=== PATIENT | male | born 1950 | race Caucasian/White ===

== ENCOUNTER 2020-09-09 23:17 | Observation (INO) | payer MEDICARE ==
[~2020-09-09] VITALS: Ht 177.8 cm; Wt 72.4 kg
--- NOTE | 2020-09-09 23:48 | ED.ADGEN ---
General Adult EDM: Chief Complaint: SYNCOPE HPI: HPI: Patient is a 70-year-old male coming in via EMS for an episode of syncope in 1 lightheadedness. Patient states he noted in his usual state of health and went to the [facility] and did weights for an hour and elliptical for an hour which she typically does 3 times a week. Patient was going from the bathtub to the toilet to have diarrhea but passed out. I told him it will need a second episode of diarrhea. After which he had an episode of lightheadedness and then vomited. Per EMS while in the ambulance he was bradycardia down to the low 30s and his blood pressure dropped to a systolic of 66. He was given 1 mg of atropine with return of heart rate in the 60s. Patient states he is very active and takes amlodipine for hypertension and has not had that changed for years. Patient states she has not been drinking much water tonight and thinks this is something he ate. He denies any recent illness, fevers, shortness of breath, chest pain, headaches, changes in urination, or any lower extremity edema. He states that the diarrhea was not tarry or bloody. He states he was a good bit and his resting heart rate is usually in the low 50s. Review of Systems: Review of Systems: All other systems within normal limits except for as noted in the HPI Current Medications: Current Medications Medications (Trade) Dose Ordered Sig/Gabbi Start Time Stop Time Status Last Admin Dose Admin Acetaminophen (Tylenol) 650 mg PRN Q4HRS PRN 09/10/20 01:15 09/11/20 01:14 Fentanyl Citrate (Fentanyl 2ml Vial) 50 mcg PRN Q1HR PRN 09/10/20 01:15 09/11/20 01:14 Ondansetron HCl (Zofran) 4 mg PRN Q8HRS PRN 09/10/20 01:15 09/11/20 01:14 Sodium Chloride 1,000 ml @ 75 mls/hr [id number] 09/10/20 01:30 09/11/20 01:29 09/10/20 01:35 75 MLS/HR Allergies: Allergies: Allergies Coded Allergies Type Severity Reaction Last Updated Verified No Known Drug Allergies 09/09/20 No Physical Exam: PE: Constitutional: Well developed, well nourished, no acute distress, non-toxic appearance. [] HENT: Normocephalic, atraumatic, bilateral external ears normal, nose normal. [] Eyes: PERRLA, conjunctiva normal, no discharge. [] Neck: No rigidity, supple, no stridor. [] Cardiovascular: Regular rate and rhythm, brisk cap refill [] Lungs & Thorax: Non labored symmetric respirations, no tachypnea or respiratory distress [] Abdomen: Soft, nondistended, nontender, no pulsatile masses. Skin: Warm, dry, no erythema, no rash. [] Back: No tenderness, no CVA tenderness. [] Extremities: No deformities, range of motion grossly intact, no lower extremity edema [] Neurologic: Alert and oriented X 3, no focal deficits noted. [] Psychologic: Affect normal, judgement normal, mood normal. [] Current Patient Data: Labs: Laboratory Tests Test 09/09/20 23:23 White Blood Count 8.5 x10^3/uL (4.0-11.0) Red Blood Count 4.59 x10^6/uL (4.30-5.70) Hemoglobin 14.1 g/dL (13.0-17.5) Hematocrit 42.2 % (39.0-53.0) Mean Corpuscular Volume 92 fL (79-100) Mean Corpuscular Hemoglobin 31 pg (25-35) Mean Corpuscular Hemoglobin Concent 33 g/dL (31-37) Red Cell Distribution Width 13.7 % (11.5-14.5) Platelet Count 169 x10^3/uL (140-400) Neutrophils (%) (Auto) 88 % (31-73) H Lymphocytes (%) (Auto) 5 % (24-48) L Monocytes (%) (Auto) 5 % (0-9) Eosinophils (%) (Auto) 2 % (0-3) Basophils (%) (Auto) 0 % (0-3) Neutrophils # (Auto) 7.5 x10^3/uL (1.8-7.7) Lymphocytes # (Auto) 0.4 x10^3/uL (1.0-4.8) L Monocytes # (Auto) 0.4 x10^3/uL (0.0-1.1) Eosinophils # (Auto) 0.2 x10^3/uL (0.0-0.7) Basophils # (Auto) 0.0 x10^3/uL (0.0-0.2) Segmented Neutrophils % 78 % (35-66) H Band Neutrophils % 11 % (0-9) H Lymphocytes % 7 % (24-48) L Monocytes % 2 % (0-10) Eosinophils % 2 % (0-5) Platelet Estimate Adequate (ADEQUATE) Sodium Level 140 mmol/L (136-145) Potassium Level 3.3 mmol/L (3.5-5.1) L Chloride Level 105 mmol/L (98-107) Carbon Dioxide Level 27 mmol/L (21-32) Anion Gap 8 (6-14) Blood Urea Nitrogen 29 mg/dL (8-26) H Creatinine 1.3 mg/dL (0.7-1.3) Estimated GFR (Cockcroft-Gault) 54.3 BUN/Creatinine Ratio 22 (6-20) H Glucose Level 101 mg/dL (70-99) H Calcium Level 9.4 mg/dL (8.5-10.1) Magnesium Level 2.2 mg/dL (1.8-2.4) Total Bilirubin 0.7 mg/dL (0.2-1.0) Aspartate Amino Transferase (AST) 20 U/L (15-37) Alanine Aminotransferase (ALT) 25 U/L (16-63) Alkaline Phosphatase 62 U/L (46-116) Troponin I Quantitative < 0.017 ng/mL (0.000-0.055) YF-Djk-S-Type Natriuretic Peptide 242 pg/mL (0-124) H Total Protein 6.4 g/dL (6.4-8.2) Albumin 3.6 g/dL (3.4-5.0) Albumin/Globulin Ratio 1.3 (1.0-1.7) Thyroid Stimulating Hormone (TSH) 4.089 uIU/mL (0.358-3.74) H Laboratory Tests 09/09/20 23:23 Laboratory Tests 09/09/20 23:23 Vital Signs: Vital Signs Date Time Temp Pulse Resp B/P (MAP) Pulse Ox O2 Delivery O2 Flow Rate FiO2 09/09/20 23:17 97.9 77 18 114/72 (86) 97 Room Air 97.9 EKG: EKG: Sinus rhythm heart rate 65 bpm. Multiple PVCs, no ST elevation or depression, normal axis. [] Heart Score: HEART Score for Chest Pain: HEART Score for Chest Pain Response (Comments) Value History Slighlty/Non-Suspicious 0 ECG Nonspecific Repolarizatio 1 Age > 65 2 Risk Factors 1 or 2 Risk Factors 1 Troponin < Normal Limit 0 Total 4 Risk Factors: Risk Factors: DM, Current or recent (<one month) smoker, HTN, HLP, family history of CAD, obesity. Risk Scores: Score 0 - 3: 2.5% MACE over next 6 weeks - Discharge Home Score 4 - 6: 20.3% MACE over next 6 weeks - Admit for Clinical Observation Score 7 - 10: 72.7% MACE over next 6 weeks - Early Invasive Strategies Radiology/Procedures: Radiology/Procedures: INDICATION: Reason: bradycardia / Spl. Instructions: / History: COMPARISON: None. FINDINGS: Single view of chest obtained. Calcific atherosclerosis. Cardiac mediastinal silhouette near upper limits of normal in size. Vertically oriented line along the left lateral thorax likely skin fold. No definite focal consolidation or edema IMPRESSION: * No focal airspace consolidation or edema. [] Course & Med Decision Making: Course & Med Decision Making Pertinent Labs and Imaging studies reviewed. (See chart for details) [] Dragon Disclaimer: Dragon Disclaimer: This electronic medical record was generated, in whole or in part, using a voice recognition dictation system. Departure Departure Impression: Primary Impression: Syncope Additional Impression: Bradycardia Disposition: ADMITTED INPT THIS HOSP Admitting Physician: TREV Condition: STABLE Referrals: NO PCP (PCP) Problem Qualifiers INDY BARTH MD Sep 09, 2020 23:48
[2020-09-09 23:58] LABS: BASO % 0 % (0-3); EOS # 0.2 x10^3/uL (0.0-0.7); EOS % 2 % (0-3); HEMATOCRIT 42.2 % (39.0-53.0); HEMOGLOBIN 14.1 g/dL (13.0-17.5); LYMPH # 0.4 x10^3/uL (1.0-4.8); LYMPH % 5 % (24-48); MEAN CORPUSCULAR HEMOGLOBIN 31 pg (25-35); MEAN CORPUSCULAR HGB CONC 33 g/dL (31-37); MEAN CORPUSCULAR VOLUME 92 fL (79-100); MONO # 0.4 x10^3/uL (0.0-1.1); MONO % 5 % (0-9); NEUT # 7.5 x10^3/uL (1.8-7.7); NEUT % 88 % (31-73); PLATELET COUNT 169 x10^3/uL (140-400); RED BLOOD COUNT 4.59 x10^6/uL (4.30-5.70); RED CELL DISTRIBUTION WIDTH 13.7 % (11.5-14.5); WHITE BLOOD COUNT 8.5 x10^3/uL (4.0-11.0)
[2020-09-10 00:09] LABS: CALCIUM 9.4 mg/dL (8.5-10.1); CREATININE 1.3 mg/dL (0.7-1.3); GFR 54.3; POTASSIUM 3.3 mmol/L (3.5-5.1)
[2020-09-10 00:14] LABS: ALBUMIN 3.6 g/dL (3.4-5.0); ALBUMIN/GLOBULIN RATIO 1.3 (1.0-1.7); MAGNESIUM 2.2 mg/dL (1.8-2.4); TOTAL BILIRUBIN 0.7 mg/dL (0.2-1.0); TOTAL PROTEIN 6.4 g/dL (6.4-8.2)
[2020-09-10 00:20] LABS: % BANDS 11 % (0-9); % EOS 2 % (0-5); % LYMPHS 7 % (24-48); % MONOS 2 % (0-10); % SEGS 78 % (35-66)
[2020-09-10 00:21] LABS: PLT ESTIMATE ADEQUATE (ADEQUATE)
[2020-09-10] MEDS ORDERED: IV NORMAL SALINE 500ML BAG 500 ML IV ONE (00:30)
--- NOTE | 2020-09-10 00:41 | RAD ---
INDICATION: Reason: bradycardia / Spl. Instructions: / History: COMPARISON: None. FINDINGS: Single view of chest obtained. Calcific atherosclerosis. Cardiac mediastinal silhouette near upper limits of normal in size. Vertica lly oriented line along the left lateral thorax likely skin fold. No definite focal consolidation or edema IMPRESSION: * No focal airspace consolidation or edema. Electronically signed by: Tony Greene MD (09/10/2020 12:39 AM) [id number]
[2020-09-10] MEDS ORDERED: ONDANSETRON PF 4 MG/2 ML VIAL. IV PRN (01:15)
[2020-09-10] MEDS ORDERED: fentaNYL PF VIAL 100 MCG/2 ML VIAL IV PRN (01:15)
[2020-09-10] MEDS ORDERED: ACETAMINOPHEN 325 MG TABLET. PO PRN (01:15)
[2020-09-10 01:28] LABS: BILIRUBIN,URINE NEGATIVE (NEG); CLARITY,URINE CLEAR; COLOR,URINE YELLOW; NITRITE,URINE NEGATIVE (NEG); PROTEIN,URINE NEGATIVE (NEG-TRACE); UROBILINOGEN,URINE 0.2 mg/dL (0.2 mg/dL)
[2020-09-10] MEDS ORDERED: IV NORMAL SALINE 1000ML BAG 1,000 ML IV SCH (01:30)
--- NOTE | 2020-09-10 01:33 | EKG ---
[facility] [address] [place] [address] Test Date: 2020-09-09 Test Time: 23:27:46 Pat Name: JEFF SANCHEZ Department: Room: Gender: M Compliance Testing Analyst: : [id number] Requested By: INDY BARTH Order Number: [id number] Reading MD: Isac Martinez MD Measurements Intervals [place] Rate: 65 P: ND: QRS: 21 QRSD: 120 T: 79 QT: 520 QTc: 547 Interpretive Statements SR PVCS Electronically Signed On 09-10-2020 11:33:16 REAL ESTATE LISTING CONSULTANT by Isac Martinez MD
[2020-09-10 01:39] LABS: BACTERIA,URINE 0 /HPF (0-FEW); RBC,URINE RARE /HPF (0-2); WBC,URINE 0 /HPF (0-4)
[2020-09-10 07:00] VITALS: BP 140/77
--- NOTE | 2020-09-10 07:23 | PDOC1 ---
History and Physical Date of Admission Date of Admission DATE: 09/10/20 TIME: 07:07 Identification/Chief Complaint Chief Complaint Syncope Source Source: Patient History of Present Illness History of Present Illness Mr Carroll is a 70yo M w/ PMHx HTN who presents to ED via EMS for an episode of syncope. Patient states he noted in his usual state of health and went to the [facility] and did weights for an hour and elliptical for an hour which she typically does 3 times a week. He then went home for a bath and felt dizzy and the urge to defecate. He was going from the bathtub to the toilet to have diarrhea but became more lightheaded. notes he passed out for less than a minute. He also vomited after the episode and contacted EMS. He fell onto bath mat with his back against the bathtub did not strike his head. He has no pain complaints. Enroute noted bradycardic down to the low 30s and his blood pressure dropped to a systolic of 66. He was given 1 mg of atropine with return of heart rate in the 60s. Patient states he is very active and takes amlodipine for hypertension and simvastatin for hyperlipidemia both at night, and has not had that changed for years. Patient states he has not been drinking much water tonight and thinks this is something he ate. He had a salad for lunch. He had a fruit bowl and yogurt with banana and strawberries blueberries and granola to eggs sausage and an Somali muffin for breakfast. He denies any recent illness, fevers, shortness of breath, chest pain, headaches, changes in urination, or any lower extremity edema. He states that the diarrhea was not tarry or bloody. He states he has a fit bit and his resting heart rate is usually in the low 50s. On review of systems his only other complaint is that he has been drinking less water because he gets up to 5 times during the night to urinate he also has difficulty starting a stream and sometimes has urge incontinence during the day. He has never been on any medications for prostate but he did take saw palmetto [id number]. He recently stopped this He was enrolled in a research study at [facility] 2 years ago and had to negative treadmill cardiac stress test at that time. Chest radiograph with no abnormality EKG - Sinus rhythm heart rate 65 bpm. Multiple PVCs, no ST elevation or depression, normal axis. Labs WBC 8.5, Hb 14.1, platelets 169, NA 140, K3.3, BUN 29, CR 1.3 glucose 101, BNP 242, troponin x2 - TSH 4. UA with no abnormalities. Past Medical History Cardiovascular: HTN, Hyperlipidemia Past Surgical History Past Surgical History: No pertinent history Family History Family History: High Cholestrol, Hypertension Social History Smoke: No ALCOHOL: rare Drugs: None Current Problem List Problem List Problems Medical Problems: (1) Bradycardia Status: Acute (2) Syncope Status: Acute Current Medications Current Medications Current Medications Sodium Chloride 500 ml @ 500 mls/hr 1X ONCE IV Last administered on 09/10/20at 00:01; Start 09/10/20 at 00:30; Stop 09/10/20 at 01:29; Status DC Ondansetron HCl (Zofran) 4 mg PRN Q8HRS PRN IV NAUSEA/VOMITING 1ST CHOICE; Start 09/10/20 at 01:15; Stop 09/11/20 at 01:14 Fentanyl Citrate (Fentanyl 2ml Vial) 50 mcg PRN Q1HR PRN IV SEVERE PAIN 7-10; Start 09/10/20 at 01:15; Stop 09/11/20 at 01:14 Sodium Chloride 1,000 ml @ 75 mls/hr [id number] IV Last administered on 09/10/20at 01:35; Start 09/10/20 at 01:30; Stop 09/11/20 at 01:29 Acetaminophen (Tylenol) 650 mg PRN Q4HRS PRN PO FEVER > 100.3'F; Start 09/10/20 at 01:15; Stop 09/11/20 at 01:14 Allergies Allergies: Coded Allergies: No Known Drug Allergies (Unverified , 09/09/20) ROS General: No: Chills, Night Sweats, Fatigue, Malaise, Appetite, Other PSYCHOLOGICAL ROS: No: Anxiety, Behavioral Disorder, Concentration difficultie, Decreased libido, Depression, Disorientation, Hallucinations, Hostility, Irritablity, Memory difficulties, Mood Swings, Obsessive thoughts, Physical abuse, Sexual abuse, Sleep disturbances, Suicidal ideation, Other Eyes: No Blurry vision, No Decreased vision, No Double vision, No Dry eyes, No Excessive tearing, No Eye Pain, No Itchy Eyes, No Loss of vision, No Photophobia, No Scotomata, No Uses contacts, No Uses glasses, No Other HEENT: No: Heacaches, Visual Changes, Hearing change, Nasal congestion, Nasal discharge, Oral lesions, Sinus pain, Sore Throat, Epistaxis, Sneezing, Snoring, Tinnitus, Vertigo, Vocal changes, Other ALLERGY AND IMMUNOLOGY: No: Hives, Insect Bite Sensitivity, Itchy/Watery Eyes, Nasal Congestion, Post Nasal Drip, Seasonal Allergies, Other Hematological and Lymphatic: No: Bleeding Problems, Blood Clots, Blood Transfusions, Brusing, Night Sweats, Pallor, Swollen Lymph Nodes, Other ENDOCRINE: No: Breast Changes, Galactorrhea, Hair Pattern Changes, Hot Flashes, Malaise/lethargy, Mood Swings, Palpitations, Polydipsia/polyuria, Skin Changes, Temperature Intolerance, Unexpected Weight Changes, Other Breast: No New/Changing Breast Lumps, No Nipple changes, No Nipple discharge, No Other Respiratory: No: Cough, Hemoptysis, Orthopnea, Pleuritic Pain, Shortness of breath, SOB with excertion, Sputum Changes, Stridor, Tachypnea, Wheezing, Other Cardiovascular: No Chest Pain, No Palpitations, No Orthopnea, No Paroxysmal Noc. Dyspnea, No Edema, No Lt Headedness, No Other Gastrointestinal: Yes Nausea, Yes Vomiting, Yes Abdominal Pain, Yes Diarrhea; No Constipation, No Melena, No Hematochezia, No Other Genitourinary: YES Frequency, YES Incontinence, YES Retention, YES Urgency; No Dysuria, No Hematuria, No Discharge, No Pain, No Flank Pain, No Other, No , No , No , No , No , No , No Musculoskeletal: No Gait Disturbance, No Joint Pain, No Joint Stiffness, No Joint Swelling, No Muscle Pain, No Muscular Weakness, No Pain In:, No Swelling In:, No Other Neurological: No Behavorial Changes, No Bowel/Bladder ControlChng, No Confusion, No Dizziness, No Gait Disturbance, No Headaches, No Impaired Coord/balance, No Memory Loss, No Numbness/Tingling, No Seizures, No Speech Problems, No Tremors, No Visual Changes, No Weakness, No Other Skin: No Dry Skin, No Eczema, No Hair Changes, No Lumps, No Mole Changes, No Mottling, No Nail Changes, No Pruritus, No Rash, No Skin Lesion Changes, No Other, No Acne Physical Exam General: Alert, Oriented X3, Cooperative, No acute distress HEENT: Atraumatic, PERRLA, EOMI, Mucous membr. moist/pink Lungs: Clear to auscultation, Normal air movement Heart: S1S2, RRR, no thrills, no rubs, no gallops, no murmurs Abdomen: Normal bowel sounds, Soft, No tenderness, No hepatosplenomegaly, No masses Rectal Exam: not examined Extremities: No clubbing, No cyanosis, No edema, Normal pulses, No tenderness/swelling Skin: No rashes, No breakdown, No significant lesion Neuro: Normal gait, Normal speech, Strength at 5/5 X4 ext, Normal tone, Sensation intact, Cranial nerves 3-12 NL, Reflexes 2+ Psych/Mental Status: Mental status NL, Mood NL Vitals Vitals Vital Signs Date Time Temp Pulse Resp B/P (MAP) Pulse Ox O2 Delivery O2 Flow Rate FiO2 09/10/20 06:26 52 18 144/75 (98) 97 Room Air 09/09/20 23:17 97.9 97.9 Labs Labs Laboratory Tests Test 09/09/20 23:23 09/10/20 01:15 09/10/20 04:15 White Blood Count 8.5 x10^3/uL (4.0-11.0) Red Blood Count 4.59 x10^6/uL (4.30-5.70) Hemoglobin 14.1 g/dL (13.0-17.5) Hematocrit 42.2 % (39.0-53.0) Mean Corpuscular Volume 92 fL (79-100) Mean Corpuscular Hemoglobin 31 pg (25-35) Mean Corpuscular Hemoglobin Concent 33 g/dL (31-37) Red Cell Distribution Width 13.7 % (11.5-14.5) Platelet Count 169 x10^3/uL (140-400) Neutrophils (%) (Auto) 88 % (31-73) Lymphocytes (%) (Auto) 5 % (24-48) Monocytes (%) (Auto) 5 % (0-9) Eosinophils (%) (Auto) 2 % (0-3) Basophils (%) (Auto) 0 % (0-3) Neutrophils # (Auto) 7.5 x10^3/uL (1.8-7.7) Lymphocytes # (Auto) 0.4 x10^3/uL (1.0-4.8) Monocytes # (Auto) 0.4 x10^3/uL (0.0-1.1) Eosinophils # (Auto) 0.2 x10^3/uL (0.0-0.7) Basophils # (Auto) 0.0 x10^3/uL (0.0-0.2) Segmented Neutrophils % 78 % (35-66) Band Neutrophils % 11 % (0-9) Lymphocytes % 7 % (24-48) Monocytes % 2 % (0-10) Eosinophils % 2 % (0-5) Platelet Estimate Adequate (ADEQUATE) Sodium Level 140 mmol/L (136-145) Potassium Level 3.3 mmol/L (3.5-5.1) Chloride Level 105 mmol/L (98-107) Carbon Dioxide Level 27 mmol/L (21-32) Anion Gap 8 (6-14) Blood Urea Nitrogen 29 mg/dL (8-26) Creatinine 1.3 mg/dL (0.7-1.3) Estimated GFR (Cockcroft-Gault) 54.3 BUN/Creatinine Ratio 22 (6-20) Glucose Level 101 mg/dL (70-99) Calcium Level 9.4 mg/dL (8.5-10.1) Magnesium Level 2.2 mg/dL (1.8-2.4) Total Bilirubin 0.7 mg/dL (0.2-1.0) Aspartate Amino Transf (AST/SGOT) 20 U/L (15-37) Alanine Aminotransferase (ALT/SGPT) 25 U/L (16-63) Alkaline Phosphatase 62 U/L (46-116) Troponin I Quantitative < 0.017 ng/mL (0.000-0.055) < 0.017 ng/mL (0.000-0.055) EJ-Mhe-N-Type Natriuretic Peptide 242 pg/mL (0-124) Total Protein 6.4 g/dL (6.4-8.2) Albumin 3.6 g/dL (3.4-5.0) Albumin/Globulin Ratio 1.3 (1.0-1.7) Thyroid Stimulating Hormone (TSH) 4.089 uIU/mL (0.358-3.74) Urine Collection Type Unknown Urine Color Yellow Urine Clarity Clear Urine pH 6.0 (<5.0-8.0) Urine Specific [place] 1.025 (1.000-1.030) Urine Protein Negative mg/dL (NEG-TRACE) Urine Glucose (UA) Negative mg/dL (NEG) Urine Ketones (Stick) Trace mg/dL (NEG) Urine Blood Negative (NEG) Urine Nitrite Negative (NEG) Urine Bilirubin Negative (NEG) Urine Urobilinogen Dipstick 0.2 mg/dL (0.2 mg/dL) Urine Leukocyte Esterase Negative (NEG) Urine RBC Rare /HPF (0-2) Urine WBC 0 /HPF (0-4) Urine Squamous Epithelial Cells Few /LPF Urine Bacteria 0 /HPF (0-FEW) Urine Mucus Slight /LPF Laboratory Tests Test 09/09/20 23:23 09/10/20 01:15 09/10/20 04:15 White Blood Count 8.5 x10^3/uL (4.0-11.0) Red Blood Count 4.59 x10^6/uL (4.30-5.70) Hemoglobin 14.1 g/dL (13.0-17.5) Hematocrit 42.2 % (39.0-53.0) Mean Corpuscular Volume 92 fL (79-100) Mean Corpuscular Hemoglobin 31 pg (25-35) Mean Corpuscular Hemoglobin Concent 33 g/dL (31-37) Red Cell Distribution Width 13.7 % (11.5-14.5) Platelet Count 169 x10^3/uL (140-400) Neutrophils (%) (Auto) 88 % (31-73) Lymphocytes (%) (Auto) 5 % (24-48) Monocytes (%) (Auto) 5 % (0-9) Eosinophils (%) (Auto) 2 % (0-3) Basophils (%) (Auto) 0 % (0-3) Neutrophils # (Auto) 7.5 x10^3/uL (1.8-7.7) Lymphocytes # (Auto) 0.4 x10^3/uL (1.0-4.8) Monocytes # (Auto) 0.4 x10^3/uL (0.0-1.1) Eosinophils # (Auto) 0.2 x10^3/uL (0.0-0.7) Basophils # (Auto) 0.0 x10^3/uL (0.0-0.2) Segmented Neutrophils % 78 % (35-66) Band Neutrophils % 11 % (0-9) Lymphocytes % 7 % (24-48) Monocytes % 2 % (0-10) Eosinophils % 2 % (0-5) Platelet Estimate Adequate (ADEQUATE) Sodium Level 140 mmol/L (136-145) Potassium Level 3.3 mmol/L (3.5-5.1) Chloride Level 105 mmol/L (98-107) Carbon Dioxide Level 27 mmol/L (21-32) Anion Gap 8 (6-14) Blood Urea Nitrogen 29 mg/dL (8-26) Creatinine 1.3 mg/dL (0.7-1.3) Estimated GFR (Cockcroft-Gault) 54.3 BUN/Creatinine Ratio 22 (6-20) Glucose Level 101 mg/dL (70-99) Calcium Level 9.4 mg/dL (8.5-10.1) Magnesium Level 2.2 mg/dL (1.8-2.4) Total Bilirubin 0.7 mg/dL (0.2-1.0) Aspartate Amino Transf (AST/SGOT) 20 U/L (15-37) Alanine Aminotransferase (ALT/SGPT) 25 U/L (16-63) Alkaline Phosphatase 62 U/L (46-116) Troponin I Quantitative < 0.017 ng/mL (0.000-0.055) < 0.017 ng/mL (0.000-0.055) EY-Xis-S-Type Natriuretic Peptide 242 pg/mL (0-124) Total Protein 6.4 g/dL (6.4-8.2) Albumin 3.6 g/dL (3.4-5.0) Albumin/Globulin Ratio 1.3 (1.0-1.7) Thyroid Stimulating Hormone (TSH) 4.089 uIU/mL (0.358-3.74) Urine Collection Type Unknown Urine Color Yellow Urine Clarity Clear Urine pH 6.0 (<5.0-8.0) Urine Specific [place] 1.025 (1.000-1.030) Urine Protein Negative mg/dL (NEG-TRACE) Urine Glucose (UA) Negative mg/dL (NEG) Urine Ketones (Stick) Trace mg/dL (NEG) Urine Blood Negative (NEG) Urine Nitrite Negative (NEG) Urine Bilirubin Negative (NEG) Urine Urobilinogen Dipstick 0.2 mg/dL (0.2 mg/dL) Urine Leukocyte Esterase Negative (NEG) Urine RBC Rare /HPF (0-2) Urine WBC 0 /HPF (0-4) Urine Squamous Epithelial Cells Few /LPF Urine Bacteria 0 /HPF (0-FEW) Urine Mucus Slight /LPF Images Images Chest Radiograph: Calcific atherosclerosis. Cardiac mediastinal silhouette near upper limits of normal in size. Vertically oriented line along the left lateral thorax likely skin fold. No definite focal consolidation or edema IMPRESSION: * No focal airspace consolidation or edema. VTE Prophylaxis Ordered VTE Prophylaxis Devices: No VTE Pharmacological Prophylaxi: Yes Assessment/Plan Assessment/Plan A/P: Syncope -by history sounds to be vasovagal in nature not cardiogenic. Will hydrate KENDRA -likely vasomotor nephropathy from below Nausea vomiting diarrhea -self-limiting gastroenteritis possibly from food poisoning versus secondary to a vasovagal event. Hypokalemia -likely GI losses from vomiting and diarrhea. Will replace Hypertension -nighttime amlodipine. Hyperlipidemia -simvastatin Bradycardia -resting heart rate low due to physical fitness. Telemetry and EKG reviewed no abnormalities. Urinary retention -we will check IPSS score likely he needs Flomax or finasteride. FEN -regular diet PPX - ambulatory FULL CODE Dispo - observation for syncope. Will have echocardiogram and likely can d/c home Justifications for Admission Other Justification PIERCE CHATTERJEE MD Sep 10, 2020 07:23
[2020-09-10] MEDS ORDERED: POTASSIUM BICARB 20 MEQ EFFERVESCENT TABLET. PO ONE (07:30)
--- NOTE | 2020-09-10 07:46 | NUR ---
Patient arrived to room 262 via bed from ER at 0746. Patient is A&OX4. VSS. No complaints of pain at this time. The patient, JEFF SANCHEZ V, 70 y/o, M admitted by WAYLON MARX MD, was given written information regarding hospital policies, unit procedures and contact persons. Valuables were checked and noted. Will continue to monitor.
[2020-09-10 08:59] LABS: CALCIUM 7.1 mg/dL (8.5-10.1); CREATININE 0.6 mg/dL (0.7-1.3); GFR 132.4; POTASSIUM 3.2 mmol/L (3.5-5.1)
[2020-09-10] MEDS ORDERED: POTASSIUM CHLORIDE 20 MEQ TABLET.ER. PO ONE (09:30)
--- NOTE | 2020-09-10 09:32 | PDOC2 ---
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 Reports that he worked out yesterday afternoon with no problem. He works out about 3 times a week with both [employer] and [employer]. No covid outbreak recently at [facility]. He went home and did not drink enough fluids from what he could remember. He also takes norvasc a day. He ate salad which he bought from [employer] and 3 hours later he started having diarrhea. He was cramping significantly ending up having 3 diarrheal episodes and within that time period he had 2 episodes of passing out and with fall but no injury. There was no vertigo, nausea or vomiting but just associated with abdominal cramping. No chest pain, SOA or palpitations. This has not happened to him before. Denies any past CAD, arrhythmias and no hx of VTE. No fever chills, anosmia or ageusia and denies being exposed to anyone who had covid. PAST MEDICAL HISTORY Cardiovascular: HTN, Hyperlipidemia Pulmonary: No pertinent hx CENTRAL NERVOUS SYSTEM: Carpal Tunnel Syndrome GI: No pertinent hx Heme/Onc: No pertinent hx Hepatobiliary: No pertinent hx Psych: No pertinent hx Musculoskeletal: Osteoarthritis Rheumatologic: No pertinent hx Infectious disease: No pertinent hx ENT: No pertinent hx Renal/: No pertinent hx Endocrine: No pertinent hx Dermatology: No pertinent hx PAST SURGICAL HISTORY Past Surgical History: Cataract Removal, Other (CTS release) FAMILY HISTORY Family History: Hypertension SOCIAL HISTORY Smoke: No ALCOHOL: none Drugs: None Lives: with Family CURRENT MEDICATIONS CURRENT MEDICATIONS Current Medications Medications (Trade) Dose Ordered Sig/Gabbi Route PRN Reason Start Time Stop Time Status Last Admin Dose Admin Sodium Chloride 500 ml @ 500 mls/hr 1X ONCE IV 09/10/20 00:30 09/10/20 01:29 DC 09/10/20 00:01 Sodium Chloride 1,000 ml @ 75 mls/hr [id number] IV 09/10/20 01:30 09/11/20 01:29 09/10/20 01:35 ALLERGIES ALLERGIES: Coded Allergies: No Known Drug Allergies (Unverified , 09/09/20) ROS Review of System 14 point ROS evluated with pertinent positives noted per HPI PHYSICAL EXAM General: Alert, Oriented X3, Cooperative, No acute distress HEENT: Atraumatic, Mucous membr. moist/pink Lungs: Clear to auscultation, Normal air movement Heart: Regular rate (SR), Normal S1, Normal S2, No murmurs Abdomen: Soft, No tenderness Extremities: No cyanosis, No edema Skin: No breakdown, No significant lesion Neuro: Normal speech, Sensation intact Psych/Mental Status: Mental status NL, Mood NL MUSCULOSKELETAL: Osteoarthritic changes both hands VITALS/I&O VITALS/I&O: Vital Signs Date Time Temp Pulse Resp B/P (MAP) Pulse Ox O2 Delivery O2 Flow Rate FiO2 09/10/20 06:26 52 18 144/75 (98) 97 Room Air 09/09/20 23:17 97.9 97.9 I & O 09/09/20 09/09/20 09/10/20 14:59 22:59 06:59 Intake Total 500 ml Balance 500 ml LABS Lab: Laboratory Tests Test 09/09/20 23:23 09/10/20 01:15 09/10/20 04:15 09/10/20 07:13 White Blood Count 8.5 x10^3/uL (4.0-11.0) Red Blood Count 4.59 x10^6/uL (4.30-5.70) Hemoglobin 14.1 g/dL (13.0-17.5) Hematocrit 42.2 % (39.0-53.0) Mean Corpuscular Volume 92 fL (79-100) Mean Corpuscular Hemoglobin 31 pg (25-35) Mean Corpuscular Hemoglobin Concent 33 g/dL (31-37) Red Cell Distribution Width 13.7 % (11.5-14.5) Platelet Count 169 x10^3/uL (140-400) Neutrophils (%) (Auto) 88 % (31-73) H Lymphocytes (%) (Auto) 5 % (24-48) L Monocytes (%) (Auto) 5 % (0-9) Eosinophils (%) (Auto) 2 % (0-3) Basophils (%) (Auto) 0 % (0-3) Neutrophils # (Auto) 7.5 x10^3/uL (1.8-7.7) Lymphocytes # (Auto) 0.4 x10^3/uL (1.0-4.8) L Monocytes # (Auto) 0.4 x10^3/uL (0.0-1.1) Eosinophils # (Auto) 0.2 x10^3/uL (0.0-0.7) Basophils # (Auto) 0.0 x10^3/uL (0.0-0.2) Segmented Neutrophils % 78 % (35-66) H Band Neutrophils % 11 % (0-9) H Lymphocytes % 7 % (24-48) L Monocytes % 2 % (0-10) Eosinophils % 2 % (0-5) Platelet Estimate Adequate (ADEQUATE) Sodium Level 140 mmol/L (136-145) 144 mmol/L (136-145) Potassium Level 3.3 mmol/L (3.5-5.1) L 3.2 mmol/L (3.5-5.1) L Chloride Level 105 mmol/L (98-107) 111 mmol/L (98-107) H Carbon Dioxide Level 27 mmol/L (21-32) 23 mmol/L (21-32) Anion Gap 8 (6-14) 10 (6-14) Blood Urea Nitrogen 29 mg/dL (8-26) H 20 mg/dL (8-26) Creatinine 1.3 mg/dL (0.7-1.3) 0.6 mg/dL (0.7-1.3) L Estimated GFR (Cockcroft-Gault) 54.3 132.4 BUN/Creatinine Ratio 22 (6-20) H Glucose Level 101 mg/dL (70-99) H 84 mg/dL (70-99) Calcium Level 9.4 mg/dL (8.5-10.1) 7.1 mg/dL (8.5-10.1) #L Magnesium Level 2.2 mg/dL (1.8-2.4) Total Bilirubin 0.7 mg/dL (0.2-1.0) Aspartate Amino Transferase (AST) 20 U/L (15-37) Alanine Aminotransferase (ALT) 25 U/L (16-63) Alkaline Phosphatase 62 U/L (46-116) Troponin I Quantitative < 0.017 ng/mL (0.000-0.055) < 0.017 ng/mL (0.000-0.055) < 0.017 ng/mL (0.000-0.055) YH-Yik-V-Type Natriuretic Peptide 242 pg/mL (0-124) H Total Protein 6.4 g/dL (6.4-8.2) Albumin 3.6 g/dL (3.4-5.0) Albumin/Globulin Ratio 1.3 (1.0-1.7) Thyroid Stimulating Hormone (TSH) 4.089 uIU/mL (0.358-3.74) H Urine Collection Type Unknown Urine Color Yellow Urine Clarity Clear Urine pH 6.0 (<5.0-8.0) Urine Specific [place] 1.025 (1.000-1.030) Urine Protein Negative mg/dL (NEG-TRACE) Urine Glucose (UA) Negative mg/dL (NEG) Urine Ketones (Stick) Trace mg/dL (NEG) Urine Blood Negative (NEG) Urine Nitrite Negative (NEG) Urine Bilirubin Negative (NEG) Urine Urobilinogen Dipstick 0.2 mg/dL (0.2 mg/dL) Urine Leukocyte Esterase Negative (NEG) Urine RBC Rare /HPF (0-2) Urine WBC 0 /HPF (0-4) Urine Squamous Epithelial Cells Few /LPF Urine Bacteria 0 /HPF (0-FEW) Urine Mucus Slight /LPF Laboratory Tests 09/09/20 23:23 Laboratory Tests 09/09/20 23:23 09/10/20 07:13 ASSESSMENT/PLAN ASSESSMENT/PLAN 1. Syncope: suspect vasovagal, Negative CSH and orthostasis. No arrhythmias per tele 2. Diarrhea: possible food poisoning 3. Prerenal azotemia due to dehydration 4. PVCs with associated hypokalemia: maintaining SR 5. HLP Recommendations TTE MCOT discussed and would like to proceed follow up 10/14 9AM Anticipate home this PM BRADY OBANDO MD 09/11/20 0655: CARDIAC CONSULT ASSESSMENT/PLAN ASSESSMENT/PLAN Late entry for 09/10/20 Pt. seen and examined. Agree with above MASCARA MOLDER note. Supportive care. Thanks LACEY HEDRICK APRN Sep 10, 2020 09:32 BRADY OBANDO MD Sep 11, 2020 06:55
[2020-09-10 09:39] VITALS: BP 148/82
[2020-09-10 09:42] VITALS: BP 134/77
[2020-09-10 09:45] VITALS: BP 134/82
[2020-09-10 11:00] VITALS: BP 148/76
[2020-09-10 15:00] VITALS: BP 156/80
[2020-09-10] MEDS ORDERED: SIMV20TA18 PO (15:21)
[2020-09-10] MEDS ORDERED: AMLO-186 PO (15:21)
--- NOTE | 2020-09-10 15:25 | PDOC3 ---
Discharge Summary Visit Information Date of Admission: Sep 10, 2020 Date of Discharge: Sep 10, 2020 Admitting Diagnosis: Syncope Final Diagnosis Problems Medical Problems: (1) Bradycardia Status: Acute (2) Syncope Status: Acute Brief Hospital Course Allergies Allergies Coded Allergies Type Severity Reaction Last Updated Verified No Known Drug Allergies 09/09/20 No Vital Signs Vital Signs Date Time Temp Pulse Resp B/P (MAP) Pulse Ox O2 Delivery O2 Flow Rate FiO2 09/10/20 11:00 98.5 58 16 148/76 (100) 99 Room Air 98.5 Lab Results Laboratory Tests Test 09/09/20 23:23 09/10/20 01:15 09/10/20 04:15 09/10/20 07:13 White Blood Count 8.5 x10^3/uL (4.0-11.0) Red Blood Count 4.59 x10^6/uL (4.30-5.70) Hemoglobin 14.1 g/dL (13.0-17.5) Hematocrit 42.2 % (39.0-53.0) Mean Corpuscular Volume 92 fL (79-100) Mean Corpuscular Hemoglobin 31 pg (25-35) Mean Corpuscular Hemoglobin Concent 33 g/dL (31-37) Red Cell Distribution Width 13.7 % (11.5-14.5) Platelet Count 169 x10^3/uL (140-400) Neutrophils (%) (Auto) 88 % (31-73) Lymphocytes (%) (Auto) 5 % (24-48) Monocytes (%) (Auto) 5 % (0-9) Eosinophils (%) (Auto) 2 % (0-3) Basophils (%) (Auto) 0 % (0-3) Neutrophils # (Auto) 7.5 x10^3/uL (1.8-7.7) Lymphocytes # (Auto) 0.4 x10^3/uL (1.0-4.8) Monocytes # (Auto) 0.4 x10^3/uL (0.0-1.1) Eosinophils # (Auto) 0.2 x10^3/uL (0.0-0.7) Basophils # (Auto) 0.0 x10^3/uL (0.0-0.2) Segmented Neutrophils % 78 % (35-66) Band Neutrophils % 11 % (0-9) Lymphocytes % 7 % (24-48) Monocytes % 2 % (0-10) Eosinophils % 2 % (0-5) Platelet Estimate Adequate (ADEQUATE) Sodium Level 140 mmol/L (136-145) 144 mmol/L (136-145) Potassium Level 3.3 mmol/L (3.5-5.1) 3.2 mmol/L (3.5-5.1) Chloride Level 105 mmol/L (98-107) 111 mmol/L (98-107) Carbon Dioxide Level 27 mmol/L (21-32) 23 mmol/L (21-32) Anion Gap 8 (6-14) 10 (6-14) Blood Urea Nitrogen 29 mg/dL (8-26) 20 mg/dL (8-26) Creatinine 1.3 mg/dL (0.7-1.3) 0.6 mg/dL (0.7-1.3) Estimated GFR (Cockcroft-Gault) 54.3 132.4 BUN/Creatinine Ratio 22 (6-20) Glucose Level 101 mg/dL (70-99) 84 mg/dL (70-99) Calcium Level 9.4 mg/dL (8.5-10.1) 7.1 mg/dL (8.5-10.1) Magnesium Level 2.2 mg/dL (1.8-2.4) Total Bilirubin 0.7 mg/dL (0.2-1.0) Aspartate Amino Transf (AST/SGOT) 20 U/L (15-37) Alanine Aminotransferase (ALT/SGPT) 25 U/L (16-63) Alkaline Phosphatase 62 U/L (46-116) Troponin I Quantitative < 0.017 ng/mL (0.000-0.055) < 0.017 ng/mL (0.000-0.055) < 0.017 ng/mL (0.000-0.055) ZZ-Vjo-P-Type Natriuretic Peptide 242 pg/mL (0-124) Total Protein 6.4 g/dL (6.4-8.2) Albumin 3.6 g/dL (3.4-5.0) Albumin/Globulin Ratio 1.3 (1.0-1.7) Thyroid Stimulating Hormone (TSH) 4.089 uIU/mL (0.358-3.74) Urine Collection Type Unknown Urine Color Yellow Urine Clarity Clear Urine pH 6.0 (<5.0-8.0) Urine Specific [place] 1.025 (1.000-1.030) Urine Protein Negative mg/dL (NEG-TRACE) Urine Glucose (UA) Negative mg/dL (NEG) Urine Ketones (Stick) Trace mg/dL (NEG) Urine Blood Negative (NEG) Urine Nitrite Negative (NEG) Urine Bilirubin Negative (NEG) Urine Urobilinogen Dipstick 0.2 mg/dL (0.2 mg/dL) Urine Leukocyte Esterase Negative (NEG) Urine RBC Rare /HPF (0-2) Urine WBC 0 /HPF (0-4) Urine Squamous Epithelial Cells Few /LPF Urine Bacteria 0 /HPF (0-FEW) Urine Mucus Slight /LPF Laboratory Tests Test 09/09/20 23:23 09/10/20 01:15 09/10/20 04:15 09/10/20 07:13 White Blood Count 8.5 x10^3/uL (4.0-11.0) Red Blood Count 4.59 x10^6/uL (4.30-5.70) Hemoglobin 14.1 g/dL (13.0-17.5) Hematocrit 42.2 % (39.0-53.0) Mean Corpuscular Volume 92 fL (79-100) Mean Corpuscular Hemoglobin 31 pg (25-35) Mean Corpuscular Hemoglobin Concent 33 g/dL (31-37) Red Cell Distribution Width 13.7 % (11.5-14.5) Platelet Count 169 x10^3/uL (140-400) Neutrophils (%) (Auto) 88 % (31-73) Lymphocytes (%) (Auto) 5 % (24-48) Monocytes (%) (Auto) 5 % (0-9) Eosinophils (%) (Auto) 2 % (0-3) Basophils (%) (Auto) 0 % (0-3) Neutrophils # (Auto) 7.5 x10^3/uL (1.8-7.7) Lymphocytes # (Auto) 0.4 x10^3/uL (1.0-4.8) Monocytes # (Auto) 0.4 x10^3/uL (0.0-1.1) Eosinophils # (Auto) 0.2 x10^3/uL (0.0-0.7) Basophils # (Auto) 0.0 x10^3/uL (0.0-0.2) Segmented Neutrophils % 78 % (35-66) Band Neutrophils % 11 % (0-9) Lymphocytes % 7 % (24-48) Monocytes % 2 % (0-10) Eosinophils % 2 % (0-5) Platelet Estimate Adequate (ADEQUATE) Sodium Level 140 mmol/L (136-145) 144 mmol/L (136-145) Potassium Level 3.3 mmol/L (3.5-5.1) 3.2 mmol/L (3.5-5.1) Chloride Level 105 mmol/L (98-107) 111 mmol/L (98-107) Carbon Dioxide Level 27 mmol/L (21-32) 23 mmol/L (21-32) Anion Gap 8 (6-14) 10 (6-14) Blood Urea Nitrogen 29 mg/dL (8-26) 20 mg/dL (8-26) Creatinine 1.3 mg/dL (0.7-1.3) 0.6 mg/dL (0.7-1.3) Estimated GFR (Cockcroft-Gault) 54.3 132.4 BUN/Creatinine Ratio 22 (6-20) Glucose Level 101 mg/dL (70-99) 84 mg/dL (70-99) Calcium Level 9.4 mg/dL (8.5-10.1) 7.1 mg/dL (8.5-10.1) Magnesium Level 2.2 mg/dL (1.8-2.4) Total Bilirubin 0.7 mg/dL (0.2-1.0) Aspartate Amino Transf (AST/SGOT) 20 U/L (15-37) Alanine Aminotransferase (ALT/SGPT) 25 U/L (16-63) Alkaline Phosphatase 62 U/L (46-116) Troponin I Quantitative < 0.017 ng/mL (0.000-0.055) < 0.017 ng/mL (0.000-0.055) < 0.017 ng/mL (0.000-0.055) DE-Qpt-I-Type Natriuretic Peptide 242 pg/mL (0-124) Total Protein 6.4 g/dL (6.4-8.2) Albumin 3.6 g/dL (3.4-5.0) Albumin/Globulin Ratio 1.3 (1.0-1.7) Thyroid Stimulating Hormone (TSH) 4.089 uIU/mL (0.358-3.74) Urine Collection Type Unknown Urine Color Yellow Urine Clarity Clear Urine pH 6.0 (<5.0-8.0) Urine Specific [place] 1.025 (1.000-1.030) Urine Protein Negative mg/dL (NEG-TRACE) Urine Glucose (UA) Negative mg/dL (NEG) Urine Ketones (Stick) Trace mg/dL (NEG) Urine Blood Negative (NEG) Urine Nitrite Negative (NEG) Urine Bilirubin Negative (NEG) Urine Urobilinogen Dipstick 0.2 mg/dL (0.2 mg/dL) Urine Leukocyte Esterase Negative (NEG) Urine RBC Rare /HPF (0-2) Urine WBC 0 /HPF (0-4) Urine Squamous Epithelial Cells Few /LPF Urine Bacteria 0 /HPF (0-FEW) Urine Mucus Slight /LPF Brief Hospital Course Mr Carroll is a 70yo M w/ PMHx HTN who presents to ED via EMS for an episode of syncope. Patient states he noted in his usual state of health and went to [facility] and did weights for an hour and elliptical for an hour which she typically does 3 times a week. He then went home for a bath and felt dizzy and the urge to defecate. He was going from the bathtub to the toilet to have diarrhea but became more lightheaded. notes he passed out for less than a minute. He a lso vomited after the episode and contacted EMS. He fell onto bath mat with his back against the bathtub did not strike his head. He has no pain complaints. Enroute noted bradycardic down to the low 30s and his blood pressure dropped to a systolic of 66. He was given 1 mg of atropine with return of heart rate in the 60s. Patient states he is very active and takes amlodipine for hypertension and simvastatin for hyperlipidemia both at night, and has not had that changed for years. Patient states he has not been drinking much water tonight and thinks this is something he ate. He had a salad for lunch. He had a fruit bowl and yogurt with banana and strawberries blueberries and granola to eggs sausage and an [place] muffin for breakfast. He denies any recent illness, fevers, shortness of breath, chest pain, headaches, changes in urination, or any lower extremity edema. He states that the diarrhea was not tarry or bloody. He states he has a fit bit and his resting heart rate is usually in the low 50s. On review of systems his only other complaint is that he has been drinking less water because he gets up to 5 times during the night to urinate he also has difficulty starting a stream and sometimes has urge incontinence during the day. He has never been on any medications for prostate but he did take saw palmetto aldi-euo-[id number]. He recently stopped this He was enrolled in a research study at [facility] 2 years ago and had to negative treadmill cardiac stress test at that time. Chest radiograph with no abnormality EKG - Sinus rhythm heart rate 65 bpm. Multiple PVCs, no ST elevation or depression, normal axis. Labs WBC 8.5, Hb 14.1, platelets 169, NA 140, K3.3, BUN 29, CR 1.3 glucose 101, BNP 242, troponin x2 - TSH 4. UA with no abnormalities. Improved after IV fluids no further episodes no further bradycardia. Seen by cardiology telemetry reviewed. Cardiology recommends mobile cardiac outpatient telemetry monitoring and he will follow up with them outpatient for this 10/14/2020 at 0900. He underwent echocardiogram which has read pending at time of discharge but does not appear to have any valvular abnormalities or wall motion abnormalities on my interpretation. Problem list: Syncope -by history sounds to be vasovagal in nature not cardiogenic. Improved with hydration KENDRA -likely vasomotor nephropathy from below Nausea vomiting diarrhea -self-limiting gastroenteritis possibly from food poisoning versus secondary to a vasovagal event. Hypokalemia -likely GI losses from vomiting and diarrhea. Will replace Hypertension -nighttime amlodipine. Hyperlipidemia -simvastatin Bradycardia -resting heart rate low due to physical fitness. Telemetry and EKG reviewed no abnormalities. BPH - IPSS score 17 likely he needs Flomax + finasteride. Will initiate flomax Greater than 30 minutes spent on d/c home with self care Discharge Information Condition at Discharge: Improved Follow Up: Weeks (1) Disposition/Orders: D/C to Home Scheduled Amlodipine Besylate (Amlodipine Besylate) 5 Mg Tablet, 5 MG PO QHS for HTN for 90 Days, #90 Ref 3 Prescribed by: PIERCE CHATTERJEE MD on 09/10/20 1521 Simvastatin (Simvastatin) 20 Mg Tablet, 1 TAB PO QHS for HLD for 90 Days, #90 Ref 3 Prescribed by: PIERCE CHATTERJEE MD on 09/10/20 1521 Tamsulosin Hcl (Flomax) 0.4 Mg Cap.er.24h, 1 CAP PO QHS for BPH for 90 Days, #90 Ref 3 Prescribed by: PIERCE CHATTERJEE MD on 09/10/20 1537 Justicifation of Admission Dx: Justifications for Admission: Justification of Admission Dx: Yes PIERCE CHATTERJEE MD Sep 10, 2020 15:25
[2020-09-10] MEDS ORDERED: TAMS0.4C97 PO (15:37)
--- NOTE | 2020-09-10 16:43 | NUR ---
Discharge Note: JEFF SANCHEZ V 2 [facility] Discharge instructions and discharge home medications reviewed with Patient/patient's daughter over phone and a copy given. All questions have been answered and understanding verbalized. The following instructions and handouts were given: bradycardia info, syncope info, hypokalemia info, urinary retention info, med info, discharge instructions, follow ups. Discontinued lines and drains: Peripheral IV intact. Patient discharged to Home or Self Care with Spouse via Wheelchair at 1643. Also, spoke to patient's daughter over the phone about some discharge instructions.
--- NOTE | 2020-09-10 17:50 | CARD ---
MR#: [id number] Date of Study: 09/10/2020 Ordering Physician: LACEY HEDRICK, Referring Physician: LACEY HEDRICK, Tech: Bel [facility] APPROVED REPORT EXAM: Two-dimensional and M-mode echocardiogram with Doppler and color Doppler. Other Information Quality : Good INDICATION Syncope 2D DIMENSIONS RVDd3.0 (2.9-3.5cm)Left Atrium(2D)3.7 (1.6-4.0cm) IVSd0.9 (0.7-1.1cm)Aortic Root(2D)3.5 (2.0-3.7cm) LVDd5.5 (3.9-5.9cm)LVOT Diameter2.3 (1.8-2.4cm) PWd0.9 (0.7-1.1cm)LVDs3.1 (2.5-4.0cm) FS (%) 30.0 %SV108.1 ml LVEF(%)60.0 (>50%) Aortic Valve AoV Peak Nghia.141.6cm/sAoV VTI28.2cm AO Peak GR.8.0mmHgLVOT Peak Nghia.106.9cm/s AO Mean GR.4mmHgAVA (VMAX)3.14cm2 ANDREINA (VTI)3.79lz4EE P 1/2 [id number] Mitral Valve MV E Teanyorv32.6cm/sMV DECEL [id number] MV A Tbbyumbc05.6cm/sE/A Ratio0.6 Tricuspid Valve TR P. Nyoxfzqn564qn/sRAP [id number] TR Peak Gr.[id number] Pulmonary Vein S1 Qxjbsxqs73.4cm/sD2 Qwujtcjv52.5cm/s LEFT VENTRICLE The left ventricle is normal size. There is borderline concentric left ventricular hypertrophy. The l eft ventricular systolic function is normal and the ejection fraction is within normal range. The Eje ction Fraction is 55-60%. There is normal LV segmental wall motion. Transmitral Doppler flow pattern is Grade I-abnormal relaxation pattern. RIGHT VENTRICLE The right ventricle is normal size. The right ventricular systolic function is normal. ATRIA The left atrium size is normal. The right atrium size is normal. The interatrial septum is intact wit h no evidence for an atrial septal defect or patent foramen ovale as noted on 2-D or Doppler imaging. AORTIC VALVE The aortic valve is calcified but opens well. Doppler and Color Flow revealed mild eccentric aortic r egurgitation. There is no significant aortic valvular stenosis. MITRAL VALVE The mitral valve is calcified but opens well. Mitral annular calcification is mild. There is no evide nce of mitral valve prolapse. There is no mitral valve stenosis. Doppler and Color Flow revealed trac e mitral valve regurgitation. TRICUSPID VALVE The tricuspid valve is normal in structure and function. Doppler and Color Flow revealed trace to mil d tricuspid regurgitation. The PA pressure was estimated at 32 mmHg. There is no tricuspid valve sten osis. PULMONIC VALVE The pulmonic valve is not well visualized. Doppler and Color Flow revealed no pulmonic valvular regur gitation. There is no pulmonic valvular stenosis. GREAT VESSELS The aortic root is normal in size. The ascending aorta is not well seen. The IVC is normal in size an d collapses >50% with inspiration. PERICARDIAL EFFUSION There is no evidence of significant pericardial effusion. Critical Notification Critical Value: No <Conclusion> The left ventricle is normal size. The left ventricular systolic function is normal and the ejection fraction is within normal range. The Ejection Fraction is 55-60%. There is borderline concentric left ventricular hypertrophy. Doppler and Color Flow revealed mild eccentric aortic regurgitation. There is no significant aortic valvular stenosis. Doppler and Color Flow revealed trace mitral valve regurgitation. Doppler and Color Flow revealed trace to mild tricuspid regurgitation. The PA pressure was estimated at 32 mmHg. Signed by : Gus Corrigan MD Electronically Approved : 09/10/2020 17:50:30
--- NOTE | 2020-09-11 09:45 | NUR ---
IP: Informed pt of negative COIVD results. Pt verbalized understanding.
== END 2020-09-10 16:43 | disposition home or self-care (01) ==
LOC: ER 23:17 → ED HOLD 09-10 01:06 → 2 SOUTH 09-10 01:30
PROVIDERS: ADMIT Internal Medicine; ATTEND Internal Medicine
DX: N17.9 Acute kidney failure, unspecified (principal); Z20.828 Contact with and (suspected) exposure to other viral communicable diseases; R55 Syncope and collapse; E87.6 Hypokalemia; I10 Essential (primary) hypertension; R00.1 Bradycardia, unspecified; E78.5 Hyperlipidemia, unspecified; N40.0 Benign prostatic hyperplasia without lower urinary tract symptoms; N17.0 Acute kidney failure with tubular necrosis; R33.8 Other retention of urine; K52.9 Noninfective gastroenteritis and colitis, unspecified; N40.1 Benign prostatic hyperplasia with lower urinary tract symptoms; E86.0 Dehydration
CPT/HCPCS: 36415; 71045; 80048; 80053; 81001; 83735; 83880; 84443; 84484; 85007; 85025; 93005; 93306; 96360; 96361; 99285; G0378; J7030; J7040; U0003; G0379